=== PATIENT | female | born 1955 | race Caucasian/White ===

== ENCOUNTER 2025-04-27 17:13 | Emergency (ER) | payer MEDICARE, OTHER ==
[~2025-04-27] VITALS: Ht 157.5 cm; Wt 76.7 kg
[2025-04-27] MEDS ORDERED: EMPA10TA PO (17:28)
[2025-04-27] MEDS ORDERED: GLIP10TA11 PO (17:28)
[2025-04-27] MEDS ORDERED: ATOR10TA PO (17:28)
[2025-04-27] MEDS ORDERED: LOSA50TA39 PO (17:28)
[2025-04-27] MEDS ORDERED: ERGO500040 PO (17:28)
[2025-04-27 19:38] LABS: PLATELET COUNT (AUTO) 250 K/uL (179-408); RED BLOOD CELL COUNT(AUTO) 5.76 MIL/uL (3.63-4.92); RED CELL DISTRIBUTION WIDTH 13.5 % (12.3-17.7); WHITE BLOOD COUNT (AUTO) 6.8 K/uL (3.8-11.8)
[2025-04-27] MEDS: IV NORMAL SALINE 1000 ML BAG IV ONE (19:42)
[2025-04-27] MEDS: ONDANSETRON 4 MG/2 ML VIAL IV ONE (19:42)
[2025-04-27 20:02] LABS: ASPARTATE AMINOTRANSFERASE 17.0 U/L (15-37); CREATININE 1.0 mg/dL (0.6-1.3); SODIUM SERUM 140.0 mmol/L (136-145); TOTAL PROTEIN, SERUM 8.4 g/dL (6.4-8.2); UREA NITROGEN, BLOOD 15.0 mg/dL (7-18)
[2025-04-27] MEDS ORDERED: METOCLOPRAMIDE HCL 10 MG/2 ML VIAL ONE (21:34)
[2025-04-27] MEDS ORDERED: FAMOTIDINE. 20 MG/2 ML VIAL IV ONE (21:35)
[2025-04-27] MEDS ORDERED: POTASSIUM CHLORIDE 20 MEQ TAB.PRT.SR ONE (21:35)
[2025-04-27] MEDS: IV NS 1000 ML 1,000 ML IV ONE (21:41)
[2025-04-27] MEDS: FAMOTIDINE. 20 MG/2 ML VIAL IV ONE (21:41)
[2025-04-27] MEDS: METOCLOPRAMIDE HCL 10 MG/2 ML VIAL IV ONE (21:41)
[2025-04-27] MEDS: POTASSIUM CHLORIDE 20 MEQ TAB.PRT.SR PO ONE (22:29)
[2025-04-27 22:39] LABS: *BILIRUBIN,URIN NEGATIVE (NEGATIVE); *BLOOD, URINE NEGATIVE (NEGATIVE); *CLARITY,URINE CLEAR (CLEAR); *KETONES,URINE 1+ (NEGATIVE); *PROTEIN,URINE NEGATIVE (NEGATIVE); *UROBILINOGEN,URINE 0.2 E.U./dl (NORMAL); LEUKOCYTE ESTERASE ,URINE NEGATIVE (NEGATIVE); NITRITE, URINE NEGATIVE (NEGATIVE)
[2025-04-27] MEDS ORDERED: METO-295 PO (22:41)
[2025-04-27 22:44] LABS: *COLOR,URINE LIGHT YELLOW (YELLOW); UGLUCOSE 3+ (NEGATIVE)
[2025-04-27 23:02] LABS: SQUAMOUS EPITHELIAL CELL,UR FEW /HPF (NONE SEEN)
[2025-04-27 23:19] VITALS: BP 135/90; O2SAT 96
== END 2025-04-27 22:53 | disposition home or self-care (01) ==
LOC: ER 17:39
DX: R11.2 Nausea with vomiting, unspecified (principal); M54.6 Pain in thoracic spine; E11.65 Type 2 diabetes mellitus with hyperglycemia; E78.5 Hyperlipidemia, unspecified; E86.0 Dehydration; I10 Essential (primary) hypertension; Z79.84 Long term (current) use of oral hypoglycemic drugs; Z79.899 Other long term (current) drug therapy; Z88.0 Allergy status to penicillin; Z88.1 Allergy status to other antibiotic agents
CPT/HCPCS: 99284; 96374; 96361; 96375; 80076; 80048; 81001; 83690; 83735; 85025; 36415; J1308; J2765; J2405; J7040 ×2; A4606; A4663